=== PATIENT | female | born 1960 | race Caucasian/White ===

== ENCOUNTER 2019-01-05 20:50 | Emergency (ER) | payer BC, SELFPAY ==
[2019-01-05 20:50] VITALS: BP 146/91; PULSE 83; RESP 16; TEMP 37.1; O2SAT 99; BMI 25.0
--- NOTE | 2019-01-05 21:21 | RAD_ITS ---
STUDY: X-RAY - LEFT HUMERUS REASON FOR EXAM: Female, 58 years old. Left arm pain status post fall TECHNIQUE: 2 view(s) of the humerus. COMPARISON: None. FINDINGS: Comminuted subcapital head/humeral neck fracture. There is no demonstrated fracture or osseous destructive process. There is no demonstrated soft tissue abnormality. RAD/Humerus min 2 Views IMPRESSION: Displaced head/humeral neck fracture Electronically Signed: Gutierrez Perdue MD at 21:48 EDT , Service support ,
[2019-01-05] MEDS: Acetaminophen 325 MG Tablet PO (21:46)
--- NOTE | 2019-01-05 22:48 | RAD_ITS ---
STUDY: X-RAY - LEFT SHOULDER REASON FOR EXAM: Female, 58 years old. Injury left shoulder TECHNIQUE: 1 view(s) of the shoulder. COMPARISON: None. FINDINGS: Anterior subluxation and dislocation. Normal acromioclavicular joint. Normal acromion. Impacted humeral neck and head fracture. The soft tissue structures are unremarkable. Normal visualized pulmonary apex. RAD/Shoulder One View IMPRESSION: Impacted humeral head and neck fracture and apparent anterior dislocation/subluxation, Hill-Sachs deformity and possible Bankart lesion.. Electronically Signed: Gutierrez Perdue MD at 23:24 EDT , Service support ,
[2019-01-05] MEDS: fentaNYL 100 MCG/2 ML Ampul 50 MCG IM (22:57)
[2019-01-05 23:40] VITALS: BP 129/83; PULSE 93; RESP 21; O2SAT 96
--- NOTE | 2019-01-06 00:04 | ED.DCSUM_ITS ---
- ER Visit Summary Date of Service: 01/06/19 Chief Complaint: Left shoulder pain History of Present Illness: The patient is a [address] Forbes. She is right-hand dominant. She states that she was walking her dog when it took off after a cat. Pulled her down to the ground. She injured her left shoulder. She denies any blow to the head or loss of consciousness. No other injuries. She reports she has a sharp pain in her left shoulder that is 10 out of 10 severity. Is worsened by movement relieved by rest. She denies any paresthesias distally. Physical Examination: Vitals: Stable. Afebrile. Neck: No vertebral tenderness. Full ROM without difficulty. Cleared by NEXUS criteria. Back: No vertebral tenderness. General: A&O x 3. NAD. Cardiovascular exam: Regular rate and rhythm, no murmur, rub or gallop. Respiratory exam: Chest nontender. No crepitus. Clear to auscultation bilaterally. No wheezes or stridor. Abdominal exam: Soft, nontender, nondistended, normal bowel sounds. No pain in RUQ or LUQ specifically. No peritoneal signs. Extremity: Severe tenderness palpation of the proximal humerus on the left. She has pain with any range of motion. She is neurovascular intact distally. Test Results: Clinical Impression(s) from Imaging Studies Humerus X-Ray 01/05/19 21:21 IMPRESSION: Displaced head/humeral neck fracture Electronically Signed: Gutierrez Perdue MD at 21:48 EDT , Service support , Shoulder X-Ray 01/05/19 22:48 IMPRESSION: Impacted humeral head and neck fracture and apparent anterior dislocation/subluxation, Hill-Sachs deformity and possible Bankart lesion.. Electronically Signed: Gutierrez Perdue MD at 23:24 EDT , Service support , Emergency Department Course and Treatment: Initially the patient refused any pain medications. I did discuss with her the severity of the fracture and ultimately she took Tylenol and a dose of fentanyl. Treatment Plan: The patient was discussed with Dr. Vega who reviewed the x- ray. Given the area that the fracture is in he asked that I present the patient with the option of having a closed reduction attempted in the emergency department. She understands that there is risk of separation of the 2 fragments of bone. She is chosen to have this done by Dr. Vega in the operating room tomorrow. She was placed in a sling and swath. She will be discharged with oxycodone for overnight. Return to the emergency department for any worsening symptoms. Disposition: To home in improved and stable condition. Impression: 1. Fall. 2. Left humeral head/neck fracture with dislocation. This note was generated with [employer] dictation software. It may contain incorrect words, spelling, and punctuation that were not noted in review of the chart prior to signing ED Disposition - Plan for ED Patient: Disposition: Home or Assisted Living Instructions: ED Fx Shoulder Referrals: Fausto Vega MD [STAFF PHYSICIAN] - 1 Day for another exam
[2019-01-06] MEDS: oxyCODONE 5 MG Tablet PO (00:15)
[2019-01-06] MEDS: Ondansetron ODT 4 MG Tablet PO ×2 (00:31)
[2019-01-06 00:38] VITALS: BP 124/74; PULSE 102; RESP 18; O2SAT 96
--- NOTE | 2019-01-06 00:39 | ED.RN ---
PT REFUSED PAIN MED BY SHOT AND C/O NAUSEA,ZOFRAN WAS GIVEN.PT DECIDED SHE WOULD TAKE PAIN PILL ONCE HOME.
== END 2019-01-06 00:41 | disposition home or self-care (01) ==
LOC: ED 21:28
PROVIDERS: Emergency Provider Emergency Medicine; Family Provider Internal Medicine; PCP Internal Medicine
DX: S42.202A Unspecified fracture of upper end of left humerus, initial encounter for closed fracture (principal); W18.30XA Fall on same level, unspecified, initial encounter; Y93.K1 Activity, walking an animal; Y92.9 Unspecified place or not applicable; Y99.9 Unspecified external cause status; I10 Essential (primary) hypertension; Z79.899 Other long term (current) drug therapy
CPT/HCPCS: 73020; 73060; 96372; 99284; J7030; A4216

== ENCOUNTER 2019-01-06 12:31 | Day surgery (SDC) | payer BC, SELFPAY ==
[2019-01-05 20:50] VITALS: BMI 25.0
[2019-01-06] MEDS: Cefazolin 2 GM in 0.9% Normal Saline 100 ML IV (12:15)
[2019-01-06 13:31] VITALS: BP 137/93; PULSE 83; RESP 18; TEMP 37.5; O2SAT 95; BMI 25.0
--- NOTE | 2019-01-06 14:20 | RAD_ITS ---
STUDY: X-RAY - LEFT HUMERUS REASON FOR EXAM: Female, 58 years old. ORIF left humerus TECHNIQUE: 9 fluoroscopic spot view(s) of the humerus. COMPARISON: January 05, 2019 FINDINGS: Improved alignment humeral head and neck fracture status post placement of plate and screws. 111.5 fluoroscopy seconds and 9.45 mgy dosage. RAD/Humerus min 2 Views IMPRESSION: Status post ORIF humeral head and neck fracture. Please correlate with clinical service. Electronically Signed: Gutierrez Perdue MD at 17:49 EDT , Service support ,
--- NOTE | 2019-01-06 16:27 | PCM.OPRPT ---
Report of Operation Date of Procedure: 01/06/19 Pre-Operative Diagnosis: Left two-part proximal humerus fracture dislocation of glenohumeral joint Post-Operative Diagnosis: Left 2 part proximal humerus fracture dislocation of glenohumeral joint Surgery/Procedure Performed:: Open reduction left glenohumeral joint. Open reduction internal fixation left proximal humerus fracture Description of Surgical Findings:: We will reduce fracture, will reduce glenohumeral joint. general scrap worker: Nicolette Wei Type of Anesthesia:: General Anesthesiologist: Enrrique Handley Special Medications: 2 g Ancef Estimated Blood Loss (mL): 150 Fluids Replaced: 1500 ml crystalloid Description of Procedure: 58-year-old female presented to my office this morning after having a fall last evening with fracture dislocation of the glenohumeral joint in 2 part proximal humerus fracture. Patient had a long medial calcar spike. In the office I discussed with the patient treatment options and natural history of this disease process. We discussed the risk of AVN. However with her age and the integrity of her joint overall we elected to proceed with open reduction of the glenohumeral joint and open reduction internal fixation with possibility of needing to do a hemiarthroplasty of the shoulder. Patient demonstrated understanding of the risks and benefits of this procedure and did wish to proceed. Risks discussed with the patient included but were not limited to blood loss, DVTs, PEs, neurovascular damage, infection, general risk of anesthesia, dislocations and stiffness. Patient was able to sign informed consent after discussion. Procedure: On the date of the procedure patient's left arm was marked in the preoperative area. Patient was taken back to the operating room where they were transferred to the table in the supine position. Anesthesia assumed control of the C-spine airway and remained controlled throughout the remainder the procedure. Patient was then adequately secured to the bed and we placed the head and the head nurse. We then placed the patient in the beachchair position and remove the arm support. All bony prominences were identified and well-padded. Left upper extremity was then prepped in a sterile fashion with surgeon scrubbed. Upon entering the room the left upper examinee was draped in a sterile repeat fashion and timeout was called. Everyone agreed upon the side, the psych on the procedure to be performed, patient identity and antibiotics given. Standard deltopectoral incision was marked out. Incision was taken down through the the skin Bovie cautery was taken down through the fatty layer until we can get to the fat stripe of the deltopectoral fascia. Once we identified the fat stripe we carefully identified the cephalic vein retracted laterally. We were able to get into the deltopectoral interval at this time and blunt dissection was used to develop this interval. Once were able to bluntly dissected into the subacromial space deltoid retractor was placed. We then placed a Zakiya retractor. At this time we are able to identify the fracture. It was quite evident that the humeral head had been anteriorly and inferiorly dislocated and was locked on the anterior portion of the glenoid. We are able to gain control of the humeral head pulled anteriorly and laterally and reduce the joint. Once the joint was reduced a pointed reduction clamps was used to reduce the fracture. Once the fracture was reduced x-rays used to verify fracture reduction. After we are happy with our fracture reduction K wires were placed through tuberosity and through the fracture. These were used to provisionally hold the fracture in place. We also placed 1, 4.0 cancellus screw in order to help with fracture stabilization as K wires needed to be removed in order to get the appropriate placement of the plate. Once the plate was adequately fixed into place provisionally using K wires we placed one screw distally and 3 screws proximally. After this we took the shoulder through range of motion and noted that the plate was significantly proximal and would likely cause impingement. At this time the 3 screws were removed as well as the shaft screw the plate was fixed 1 cm more distally. K wires were again used to provisionally fix the plate in place lining the calcar screw up with the inferior calcar. Once this was completed one screw was placed in the shaft in order to bring the plate down to bone. 3 screws were placed proximally and K wires removed. We then verify the position of the plate and the fracture reduction which appeared to be adequate. At this time the remainder of the locking screws were placed as well as one additional shaft screw. Once this was completed the shoulder was taken through range of motion. There is no crepitus. There was one screw that was right at the subchondral cortex this screw was removed and replaced with a shorter screw. Shoulder was again taken through range of motion. No crepitus was appreciated. All screws were appropriate length. Fracture reduction was stable throughout range of motion. Wound was pita irrigated out normal saline. We did a 1 minute Irricept lavage followed by copious irrigation with normal saline. The deltopectoral fascia was closed using #1 Vicryl. Subcu fatty layer was closed using #1 Vicryl. Skin was closed with 2-0 Vicryl and Monocryl suture for closure. Steri-Strips were placed. Sterile dressing was placed. Patient was placed back in her sling. Patient was awakened by anesthesia and transferred to PACU for recovery. Postoperative plan: Patient will be nonweightbearing for total of 6 weeks. She is allowed to do pendulum swings right now. She will start passive range of motion with physical therapy at her first postop visit in 2 weeks we will do a wound check. Patient will do 2 weeks passive range of motion followed by 2 weeks active range of motion and then we will advance physical therapy from there. Grafts/Implants Used: Synthes locking proximal humerus anterior lateral plate - Complications None - Admit VTE Documentation VTE Present on Admission: No VTE Mechan Device Prophylaxis: SCD's, Thigh High SIMRAN Hose VTE Pharm Prophylaxis ordered?: Yes
[2019-01-06 16:44] VITALS: BP 100/74; BP 137/93; PULSE 70; RESP 16; TEMP 36.1; O2SAT 95
[2019-01-06] MEDS: Ketorolac 15 MG/ML Vial IV (16:57)
[2019-01-06 17:00] VITALS: BP 126/79; BP 137/93; PULSE 82; RESP 18; O2SAT 94
[2019-01-06 17:16] VITALS: BP 137/93; BP 138/71; PULSE 88; RESP 18; TEMP 36.3; O2SAT 95
[2019-01-06 18:40] VITALS: BP 120/47; BP 137/93; PULSE 81; RESP 18; TEMP 36.4; O2SAT 93
== END 2019-01-06 18:50 | disposition home or self-care (01) ==
LOC: SDC 12:32 → AC 12:36 → MS3 13:06 → AC 17:16
PROVIDERS: Family Provider Internal Medicine; PCP Internal Medicine; Referring Provider Specialist; Visit Provider Specialist
PROC: (CPT 23680; principal; 2019-01-06 14:10)
DX: S42.222A 2-part displaced fracture of surgical neck of left humerus, initial encounter for closed fracture (principal); S43.015A Anterior dislocation of left humerus, initial encounter; W18.30XA Fall on same level, unspecified, initial encounter; Y93.K1 Activity, walking an animal; Y92.9 Unspecified place or not applicable; Y99.9 Unspecified external cause status; I10 Essential (primary) hypertension; Z79.899 Other long term (current) drug therapy; Z87.891 Personal history of nicotine dependence
CPT/HCPCS: 01630; 23680; 64415; 73060; 76000; C1713; J7120; J2405

== ENCOUNTER 2020-06-07 09:51 | Day surgery (SDC) | payer BC, SELFPAY ==
--- NOTE | 2020-06-04 17:15 | PCM.HPOB.BLA ---
- Problem List (1) Uterine polyp Status: Acute History and Physical Date of Admission: 06/07/20 DATE OF SERVICE: May 28, 2020 ? PROBLEM:?Uterine polyps in a postmenopausal female ? Pelvic US: Impression ========= uterus normal size and contour. Endometrial thickness 12.5 mm. There is a well-circumscribed endometrial polyp in fundal aspect measuring 2 cm in greatest dimension. There is a demonstrated feeding vessel to this polyp. no solid endometrial lesions ?noted as appreciated on previous ultrasound in 2019. No myometrial lesions Right ovary appears normal. Left ovary not visualized. no free fluid in culdesac Recommendations consider hysteroscopic removal of endometrial polyp. follow up as clinically indicated ? PAST SURGICAL HISTORY:? PAST SURGICAL HISTORY PAST SURGICAL HISTORY Procedure Laterality Date ? COLONOSCOP W/ OR W/O BRSH SPEC ? 11/05/15 ? Colonoscopy ? COLONOSCOP W/ OR W/O BRSH SPEC ? 07/09/2018 ? adenomatous polyp, repeat in 5 years ? LIGATE FALLOPIAN TUBE ? 1995 ? Tubal ligation ? OPEN FIXATN MID HUMERUS FRACTURE Left 01/06/2019 ? ORIF glenohumeral joint & proximal humerus Fx ? ? PAST MEDICAL HISTORY:? PAST MEDICAL HISTORY PAST MEDICAL HISTORY Diagnosis Date ? Hypertension 01/10/2003 ? Osteopenia of left hip 06/18/2019 ? Proximal humerus fracture 01/06/2019 ? Left displaced prox. humerus fracture. ? Recurrent UTI ? ? after intercourse ? Tubular adenoma of colon 03/03/2016 ? ? SOCIAL HISTORY:? SOCIAL HISTORY Social History ? Tobacco Use ? Smoking status: Former Smoker ? ? Packs/day: 1.00 ? ? Years: 20.00 ? ? Pack years: 20.00 ? ? Quit date: 09/14/1994 ? ? Years since quittin.7 ? Smokeless tobacco: Never Used Substance Use Topics ? Alcohol use: Yes ? ? Frequency: 2-4 times a month ? ? Drinks per session: 1 or 2 ? ? Binge frequency: Never ? ? Comment: Rarely ? Drug use: No ? ? Allergies: ?Nitrofurantoin ?GI Upset, Shortness of Breath, ?Myalgia ? Current Outpatient Medications on File Prior to Visit Medication Sig ? amLODIPine (NORVASC) 10 mg tablet Take 1 tablet by mouth once daily. ? MULTIVITAMIN ORAL Take ?by mouth once daily. ? No current facility-administered medications on file prior to visit.? OBJECTIVE: ? VITALS:? BP 120/82 ? Pulse 60 ? Resp 12 ? Ht 5' 3.5 (1.613 m) ? Wt 157 lb 6.4 oz (71.4 kg) ? LMP 11/07/2010 ? BMI 27.44 kg/m? ? HEENT: ?Normocephalic, atraumatic, Mucus membranes moist without lesions. ? NECK: ???Soft and Supple. ?No adenopathy , thyromegaly or bruits. ? SKIN: No lesions. ? CHEST: Clear to auscultation. ?No wheezes or rales. ?Good air exchange. ? HEART: Regular rate and rhythm ?No S3 or S4. ?No gallops or rubs. ? BACK: Nontender with no CVA tenderness. ? ABDOMEN: Soft, non-tender, non-distended, no masses, no hepatosplenomegaly. ? LOWER EXTREMITIES: There was no pitting edema, no palpable cords and no skin changes. ? ? ? ASSESSMENT:?Uterine polyp ? PLAN:?Discussed hysteroscopy, polypectomy, D&C.?The rationale for the proposed surgery was discussed in addition to risks, benefits, and alternatives. ?General pre- and post-operative care was reviewed. ?Questions were answered. ?After discussion, the patient indicated a desire to proceed with the planned surgery. ? Maeve Mendoza,?DO
[2020-06-07 10:19] VITALS: BP 133/79; PULSE 74; RESP 16; TEMP 36.9; O2SAT 96; BMI 26.9
[2020-06-07] MEDS: Lactated Ringers 1,000 ML 100 ML IV (10:26)
--- NOTE | 2020-06-07 11:20 | EMB_PTH ---
PATIENT: MARY ANN CARROLL [place] [facility] [id number] AGE/SX: 60/F ROOM: RE06/07/[address]: Dr. Maeve Mendoza, : 1960 BED: DIS: 06/07/2020 SPEC #: [id number] RECD: 06/07/20 14:15 STATUS: MARIA GUADALUPE ANTWON #: [id number] JOSE: 06/07/20 11:[address]: Maeve Mendoza DEPT: SURGICAL PATHOLOGY RECD BY: Miesha Pham ENTERED: 06/08/20 07:32 SP TYPE: ENDOM BX/C TOÑITO DR: Dr. Victor Hugo Forbes MD Tissues: Endometrium, NOS Procedures: Surgery Specimen Level IV HEADER OPERATION: Hysteroscopy, D & C Symphion, polypectomy PRE-OP DIAGNOSIS: Uterine polyp TISSUE SUBMITTED: Uterine polyp and endometrial curettings MICROSCOPIC DIAGNOSIS Endometrial curettings and polyp, biopsy: Polypoid fragments of endometrium with simple cystic hyperplasia without atypia. AM:sonam 06/11/20 MICROSCOPIC DESCRIPTION Slides are reviewed. GROSS DESCRIPTION Received in fixative is one container labeled with the patient's name and designated uterine polyp and endometrial curettings. The specimen consists of multiple irregular fragments of travis-pink soft tissue that in aggregate measure 3 x 2.5 x 0.3 cm. The specimen is totally submitted in one cassette. / SJ:sonam 06/08/20 TC:5 CPT: 18406
--- NOTE | 2020-06-07 11:23 | OP.PCM_ITS ---
Problem List (1) Uterine polyp Status: Acute Report of Operation Date of Procedure: 06/07/20 Pre-Operative Diagnosis: Uterine polyp present on pelvic US, postmenopausal state Post-Operative Diagnosis: As above Surgery/Procedure Performed:: Hysteroscopy, polypectomy, D&C Description of Surgical Findings:: One polyp noted coming from the right fundus of the uterus. Once the polyp was removed, the uterine cavity was otherwise normal-appearing and bilateral tubal ostia were visualized. The endometrium was atrophic appearing. compressor station chief engineer: None Type of Anesthesia:: MAC Special Medications: None Specimen's removed: Polyp and endometrial curettings Drains: None Estimated Blood Loss (mL): < 50 cc Fluids Replaced: 500 cc fluid deficit with fluid present on the OR floor Description of Procedure: Procedure start time: 112 Procedure stop time: 114 The patient was taken to the operating room where MAC anesthesia was found to be adequate. She was prepped and draped in the usual sterile fashion in dorsal lithotomy position using yellowfin stirrups. A weighted speculum was placed in the vagina to expose the cervix. The anterior lip of the cervix was grasped with a single-tooth tenaculum. The cervix was serially dilated to accommodate the hysteroscope. The hysteroscope was gently advanced into the uterus. A polyp was noted. The hysteroscope was then removed. The Symphion hysteroscope was then advanced into the uterus and the cavity was distended with normal saline. Using the Symphion resection device the polyp was removed. The polyp was sent to pathology for review. The Symphion hysteroscope was then removed from the uterus. A sharp curettage was performed for scant tissue. The endometrial curettings were sent to pathology for review. All instruments were removed from the vagina. Bleeding was hemostatic. Instrument sponge counts were correct. Patient tolerated procedure well and was taken to the recovery room in stable condition. Grafts/Implants Used: None - Complications None - Admit VTE Documentation VTE Present on Admission: No VTE Mechan Device Prophylaxis: SCD's VTE Pharm Prophylaxis ordered?: No
--- NOTE | 2020-06-07 12:07 | DCINST_ITS ---
Discharge Diet: No Restrictions Discharge Activity: May Shower May resume sexual activity in: 1-2 weeks - Once the bleeding stops. No tampons, intercourse, hot tubs, pools, or tub baths for 1-2 week or until the bleeding stops. Weight Bearing Status: Weight bearing as tolerated Lifting Restrictions: No restrictions Call your doctor if you observe: Fever of 101 or Higher, Inability to urinate, Inability to have a bowel movement, Using more than one pad per hour, Shortness of breath, Dizziness, Fainting spells, Chest pain, Increased palpitations (irregular heartbeat), Calf discomfort, Uncontrolled pain Allergies/Adverse Reactions: Allergies nitrofurantoin [From Macrobid] Allergy (Verified 06/07/20 10:19) Other FELT LIKE SHE HAD THE FLU Medications to take at Discharge Amlodipine Besylate [Norvasc] 10 mg PO DAILY 01/05/19 Multivitamin 1 ea PO DAILY 05/30/20 Naproxen Sodium [Aleve] 220 mg PO DAILY 05/30/20 Orders to be completed after discharge: Type & Screen - PAT ONLY Time Frame: 06/07/20, Facility: [facility], Location: Laboratory CBC-Complete Blood Cnt No Diff Time Frame: 06/07/20, Facility: [facility], Location: Laboratory Primary Care Physician: Victor Hugo Forbes MD [Primary Care Provider] - Test Results: Test results from this visit will be discussed in further detail at your follow- up appointment, if applicable. Please Follow Up With: Maeve Mendoza DO When: 1-2 weeks
[2020-06-07 12:15] VITALS: BP 119/84; BP 125/84; BP 133/79; PULSE 63; PULSE 77; RESP 18; TEMP 36.2; O2SAT 97
[2020-06-07 12:20] VITALS: BP 131/81; BP 133/79; PULSE 61; RESP 18; O2SAT 97
[2020-06-07 12:25] VITALS: BP 133/79; BP 133/81; PULSE 61; RESP 18; O2SAT 97
[2020-06-07 12:30] VITALS: BP 121/84; BP 133/79; PULSE 59; RESP 18; TEMP 36.6; O2SAT 96
[2020-06-07 13:20] VITALS: BP 130/74; BP 133/79; PULSE 61; RESP 16; TEMP 36.4; O2SAT 99
== END 2020-06-07 13:24 | disposition home or self-care (01) ==
LOC: SDC 09:51 → AC 09:52
PROVIDERS: Anesthesiology; PCP Internal Medicine; Referring Provider Obstetrics & Gynecology; Visit Provider Obstetrics & Gynecology
PROC: 0UB98ZZ Excision of Uterus, Via Natural or Artificial Opening Endoscopic (ICD-10-PCS; CPT 58558; principal; 2020-06-07 11:05)
DX: N85.01 Benign endometrial hyperplasia (principal); Z11.59 Encounter for screening for other viral diseases; I10 Essential (primary) hypertension; Z78.0 Asymptomatic menopausal state; Z79.899 Other long term (current) drug therapy; Z87.440 Personal history of urinary (tract) infections; Z87.891 Personal history of nicotine dependence
CPT/HCPCS: 00952; 58558; 87635; 88305; C9803; J7120; U0003